=== PATIENT | female | born 1975 | race Hispanic/Latino ===

== ENCOUNTER 2019-05-26 14:15 | Emergency (ER) | payer SELFPAY ==
[2019-05-26] MEDS ORDERED: TORADOL IM ONE (18:56)
[2019-05-26 19:56] VITALS: BP 141/82
--- NOTE | 2019-05-26 20:03 | XRay Report ---
PROCEDURE: XR SPINE LUMBOSACRAL 2-3V HISTORY: Low back pain AP and lateral views of the lumbar spine were acquired. No fracture is seen in the lumbar spine. Ther e is loss of intervertebral disc space height at L5-S1. There is mild anterior endplate remodeling at L1-L2 L3 and L3-L4. IMPRESSION: No fracture is seen in the lumbar spine This document is electronically signed by Royer Alonzo MD., May 26 2019 08:01:50 PM ET
--- NOTE | 2019-05-26 20:05 | XRay Report ---
PROCEDURE: XR SPINE CERVICAL 2-3V HISTORY: neck pain FINDINGS: AP lateral and open-mouth views of the cervical spine were acquired and demonstrate no fracture or ma lalignment of the cervical spine. The intervertebral disc space heights appear preserved. IMPRESSION: No fracture is seen in the cervical spine This document is electronically signed by Royer Alonzo MD., May 26 2019 08:03:38 PM ET
--- NOTE | 2019-05-26 20:39 | Emergency Department Report ---
ED Fall HPI - General Chief Complaint: Fall Stated Complaint: FALL/HEAD/BODY PAIN Time Seen by Provider: 05/26/19 18:55 Source: patient Mode of arrival: Ambulatory - History of Present Illness Initial Comments: pt is a 44 y/o W/F who presents s/p fall from porch 4 days ago there was no loc pt was immediately ambulatory on scene did not see treatment 4 days ago as she had no pain then, now complains of 5/10 right posterior lateral neck and low back pain with myalgia this is an acute exacerbation of chronic neck and back pain , pain is described as 5/10 aching and soreness there is no weakness no numbness no paralysis no loss or decrease in bowel or bladder function . pt is ambulatory to base per patient. MD Complaint: fall Onset/Timin -: days(s) Fall From: standing, other (porch 3 feet ) When Fall Occurred: # days [employer] (4) Fall Witnessed: no Place Fall Occurred: home Loss of Consciousness: none Prolonged Down Time?: no Symptoms Prior to Fall: none Location: neck, back Severity: moderate Severity scale (0 -10): 5 Quality: burning, aching Context: tripped/slipped Associated Symptoms: neck pain. denies: headache, numbness, weakness, chest paint, shortness of breath, abdominal pain, hematuria, unable to walk, lightheaded, vertigo, confusion - Related Data Previous Rx's Medication Instructions Recorded Last Taken Type Cyclobenzaprine [Flexeril] 10 mg PO TID PRN #30 tablet 05/26/19 Unknown Rx Menthol/Camphor [[place] Sarita 1 applicatio TP QID PRN #1 tube 05/26/19 Unknown Rx Ointment] Naproxen [Naprosyn TAB] 500 mg PO BID PRN #30 tablet 05/26/19 Unknown Rx Allergies Allergy/AdvReac Type Severity Reaction Status Date / Time No Known Allergies Allergy Unverified 05/26/19 14:23 ED Review of Systems ROS: Stated complaint: FALL/HEAD/BODY PAIN Other details as noted in HPI Constitutional: denies: chills, fever Eyes: denies: eye pain, eye discharge, vision change ENT: denies: ear pain, throat pain Respiratory: denies: cough, shortness of breath, wheezing Cardiovascular: denies: chest pain, palpitations Endocrine: no symptoms reported Gastrointestinal: denies: abdominal pain, nausea, diarrhea Genitourinary: denies: urgency, dysuria, discharge Musculoskeletal: back pain, arthralgia, myalgia. denies: joint swelling Skin: denies: rash, lesions Neurological: denies: headache, weakness, paresthesias Psychiatric: denies: anxiety, depression Hematological/Lymphatic: denies: easy bleeding, easy bruising ED Past Medical Hx - Past Medical History Previous Medical History?: Yes Additional medical history: PITUARY ISSUE - Surgical History Hx Cholecystectomy: Yes Additional Surgical History: OVARY/ - Medications Home Medications: Home Medications Medication Instructions Recorded Confirmed Last Taken Type Cyclobenzaprine [Flexeril] 10 mg PO TID PRN #30 tablet 05/26/19 Unknown Rx Menthol/Camphor [[place] Sarita 1 applicatio TP QID PRN #1 tube 05/26/19 Unknown Rx Ointment] Naproxen [Naprosyn TAB] 500 mg PO BID PRN #30 tablet 05/26/19 Unknown Rx ED Physical Exam - General Limitations: No Limitations General appearance: alert, in no apparent distress - Head Head exam: Present: normocephalic, normal inspection - Expanded Head Exam Expanded Head exam: Absent: laceration, abrasion, contusion, hematoma, racoon eyes, bey's sign, general tenderness, tenderness of temporal artery, CSF rhinorrhea, CSF otorrhea - Eye Eye exam: Present: normal appearance, PERRL, EOMI. Absent: conjunctival injection, nystagmus, periorbital swelling, periorbital tenderness Pupils: Present: normal accommodation - ENT ENT exam: Present: normal orophraynx, mucous membranes moist, TM's normal bilaterally, normal external ear exam - Neck Neck exam: Present: normal inspection, tenderness (right posterior lateral neck pain ), full ROM. Absent: meningismus, lymphadenopathy, thyromegaly - Expanded Neck Exam Expanded Neck exam: Present: tenderness (no posterior vertebral point tenderness rom intact unrestricted ). Absent: midline deformity, anterior neck swelling, carotid bruit, tracheal deviation - Respiratory Respiratory exam: Present: normal lung sounds bilaterally. Absent: respiratory distress, wheezes, rales, rhonchi, stridor, chest wall tenderness - Cardiovascular Cardiovascular Exam: Present: regular rate, normal rhythm, normal heart sounds. Absent: systolic murmur, diastolic murmur, rubs, gallop - GI/Abdominal GI/Abdominal exam: Present: soft, normal bowel sounds. Absent: distended, tenderness, bruit, hernia - Rectal Rectal exam: Present: deferred - Extremities Exam Extremities exam: Present: normal inspection, full ROM, normal capillary refill. Absent: tenderness, pedal edema, joint swelling, calf tenderness - Back Exam Back exam: Present: normal inspection, full ROM, tenderness, muscle spasm, paraspinal tenderness (right posteror lateral back muscle pain to deep palpation no posterior vertebral point tenderness rom intact ). Absent: CVA tenderness (R), CVA tenderness (L), vertebral tenderness, rash noted - Expanded Back Exam Expanded Back exam: Absent: saddle anesthesia Back exam: Sciatic Notch Tenderness: Right, Positive Straight Leg Raise: Right, Negative Straight Leg Raising: Left - Neurological Exam Neurological exam: Present: alert, oriented X3, CN II-XII intact, normal gait, reflexes normal. Absent: motor sensory deficit - Expanded Neurological Exam Expanded Patient oriented to: Present: person, place, time Speech: Present: fluid speech Cranial nerves: EOM's Intact: Normal, Gag Reflex: Normal, Tongue Deviation: Normal, Nystagmus: Normal, Facial Sensation: Normal Cerebellar function: Finger to Nose: Normal, Heel to Strauss: Normal, Romberg: Normal Upper motor neuron: Jeffery Neglect: Normal, Pronator Drift: Normal, Babinski Sign: Normal, Sensory Extinction: Normal Sensory exam: Upper Extremity Light Touch: Normal, Upper Extremity Pin Prick: Normal, Upper Extremity Temperature: Normal, UE 2 Point Discrimination: Normal, Lower Extremity Light Touch: Normal, Lower Extremity Pin Prick: Normal, Lower Extremity Temperature: Normal, LE 2 Point Discrimination: Normal Motor strength exam: RUE: 5, LUE: 5, RLE: 5, LLE: 5 DTR: bicep (R): 2+, bicep (L): 2+, knee (R): 2+, knee (L): 2+, ankle (R): 2+, ankle (L): 2+ Best Eye Response ([place]): (4) open spontaneously Best Motor Response ([place]): (6) obeys commands Best Verbal Response ([place]): (5) oriented [place] Total: 15 - Psychiatric Psychiatric exam: Present: normal affect, normal mood - Skin Skin exam: Present: warm, dry, intact, normal color. Absent: rash ED Course Vital Signs 05/26/19 05/26/19 14:34 19:54 Temperature 98.3 F 98.1 F Pulse Rate 71 65 Respiratory 18 14 Rate Blood Pressure 126/64 141/82 [Left] O2 Sat by Pulse 98 100 Oximetry ED Medical Decision Making - Radiology Data Radiology results: report reviewed, image reviewed Patient: ALLISON ADAIR MR#: [id number] : 1975 Acct:[id number] Age/Sex: 44 / F ADM Date: 05/26/19 Loc: ED Attending Dr: Ordering Physician: RADHA OLIVARES NP Date of Service: 05/26/19 Procedure(s): XR spine lumbosacral 2-3V Accession Number(s): [id number] cc: RADHA OLIVARES NP Fluoro Time In Minutes: PROCEDURE: XR SPINE LUMBOSACRAL 2-3V HISTORY: Low back pain AP and lateral views of the lumbar spine were acquired. No fracture is seen in the lumbar spine. There is loss of intervertebral disc space height at L5-S1. There is mild anterior endplate remodeling at L1-L2 L3 and L3-L4. IMPRESSION: No fracture is seen in the lumbar spine This document is electronically signed by Royer Alonzo MD., May 26 2019 08:01:50 PM ET Transcribed By: CAITLYN Dictated By: ROYER ALONZO MD Electronically Authenticated By: ROYER ALONZO MD Signed Date/Time: 05/26/192002 DD/ 28 TD/TT: 05/26/191928 Patient: ALLISON ADAIR MR#: [id number] : 1975 Acct:[id number] Age/Sex: 44 / F ADM Date: 05/26/19 Loc: ED Attending Dr: Ordering Physician: RADHA OLIVARES NP Date of Service: 05/26/19 Procedure(s): XR spine cervical 2-3V Accession Number(s): [id number] cc: RADHA OLIVARES NP Fluoro Time In Minutes: PROCEDURE: XR SPINE CERVICAL 2-3V HISTORY: neck pain FINDINGS: AP lateral and open-mouth views of the cervical spine were acquired and demonstrate no fracture or malalignment of the cervical spine. The intervertebral disc space heights appear preserved. IMPRESSION: No fracture is seen in the cervical spine This document is electronically signed by Royer Alonzo MD., May 26 2019 08:03:38 PM ET Transcribed By: CAITLYN Dictated By: ROYER ALONZO MD Electronically Authenticated By: ROYER ALONZO MD Signed Date/Time: 05/26/192004 DD/ 28 TD/TT: 05/26/191928 - Medical Decision Making this is neck and low back strain xrays neg for fracture plan, nsaids muscle relaxants ,analgesic balm follow up with pcp in 2-3 days return to ed if symptoms worsen, Critical care attestation.: If time is entered above; I have spent that time in minutes in the direct care of this critically ill patient, excluding procedure time. ED Disposition Clinical Impression: Strain of fascia of lower back Fall Qualifiers: Encounter type: initial encounter Qualified Code(s): W19.XXXA - Unspecified fall, initial encounter Neck muscle strain Qualifiers: Encounter type: initial encounter Qualified Code(s): S16.1XXA - Strain of muscle, fascia and tendon at neck level, initial encounter Disposition: -01 TO HOME OR SELFCARE Is pt being admited?: No Does the pt Need Aspirin: No Condition: Stable Instructions: Muscle Strain (ED), Fall Prevention (ED), Cervical Spine Strain (ED), Low Back Strain (ED) Prescriptions: Cyclobenzaprine [Flexeril] 10 mg PO TID PRN #30 tablet PRN Reason: Muscle Spasm Naproxen [Naprosyn TAB] 500 mg PO BID PRN #30 tablet PRN Reason: pain Menthol/Camphor [[place] Sarita Ointment] 1 applicatio TP QID PRN #1 tube PRN Reason: pain Referrals: DEVORAH CHESTER MD [Primary Care Provider] - 3-5 Days Forms: Work/School Release Form(ED) Time of Disposition: 20:49
== END 2019-05-26 20:56 | disposition home or self-care (01) ==
LOC: ED 14:15
DX: S39.012A Strain of muscle, fascia and tendon of lower back, initial encounter (principal); S16.1XXA Strain of muscle, fascia and tendon at neck level, initial encounter; Z90.49 Acquired absence of other specified parts of digestive tract; Z90.79 Acquired absence of other genital organ(s); W17.89XA Other fall from one level to another, initial encounter; Y93.89 Activity, other specified; Y92.019 Unspecified place in single-family (private) house as the place of occurrence of the external cause; Y99.8 Other external cause status
CPT/HCPCS: 72040; 72100; 96372; 99283; J1885